=== PATIENT | female | born 1990 | race Caucasian/White ===

== ENCOUNTER 2020-05-05 17:25 | Emergency (ER) | payer MEDICAID ==
[~2020-05-05] VITALS: Ht 167.6 cm; Wt 72.5 kg
[2020-05-05] MEDS ORDERED: ONDANSETRON 2MG/ML, 2ML IVPush ONE (18:00)
[2020-05-05] MEDS ORDERED: SODIUM CHLORIDE 0.9% 1,000ML IVBOLUS ONE (18:00)
[2020-05-05] MEDS ORDERED: ONDANSETRON 2MG/ML, 2ML ONE (18:10)
--- NOTE | 2020-05-05 18:10 | NUR ---
THIS IS A 30 YO FEMALE COMING IN FOR N/V WORSENING OVER THE PAST WEEK. PATIENT IS WOMEN EST GESTATION 8 WEEKS. HAS OB APPT 05/08, WAS SEEN AT [facility]RG[facility] AND SENT HOME WITH ZOFRAN, NO RELIEF AT HOME, UNABLE TO TOLERATE FLUIDS OR FOOD. HAD SIMILAR EXPERIENCE WITH LAST . MONITORING IN PLACE, VSS, NOT VOMITING AT THIS TIME. ERP IN ROOM FOR EVAL
--- NOTE | 2020-05-05 18:23 | NUR ---
PIV PLACED, MEDICATED PER EMAR. UA COLLECTED AND SENT. BLOOD DRAWN BY TECH
[2020-05-05 18:26] LABS: BASOPHILS % (AUTO) 0 % (0-1); EOSINOPHILS % (AUTO) 0 % (1-7); LYMPHOCYTES % (AUTO) 18 % (22-44); MEAN CORPUSCULAR HEMOGLOBIN 32.7 pg (27.0-34.8); MEAN CORPUSCULAR HGB CONC 34.7 g/dL (32.4-35.8); MEAN PLATELET VOLUME 9.9 fL (7.4-10.4); MONOCYTES % (AUTO) 6 % (2-9); NEUTROPHILS % (AUTO) 75 % (42-75); PLATELET COUNT 159 x10^3/uL (130-400); RED BLOOD COUNT 4.69 x10^6/uL (3.82-5.3); RED CELL DISTRIBUTION WIDTH 12.6 % (9.6-15.2)
[2020-05-05 18:27] LABS: MD NO
[2020-05-05 18:27] LABS: MICROSCOPIC INDICATED
[2020-05-05 18:35] LABS: ALANINE AMINOTRANSFERASE 18 U/L (12-78); ALBUMIN 3.7 g/dL (3.4-5.0); ANION GAP 8 mmol/L (5-15); CALCIUM 8.8 mg/dL (8.5-10.1); CHLORIDE 109 mmol/L (98-107); CREATININE 0.65 mg/dL (0.55-1.02)
[2020-05-05 18:37] LABS: ALKALINE PHOSPHATASE 35 U/L (45-117); BILIRUBIN,TOTAL 0.8 mg/dL (0.2-1.0); TOTAL PROTEIN 6.8 g/dL (6.4-8.2)
[2020-05-05] MEDS ORDERED: METOCLOPRAMIDE 5 MG/ML, 2ML ONE (18:51)
[2020-05-05] MEDS ORDERED: CEFTRIAXONE PMX 1GM/50ML 50 ML ONE (18:51)
[2020-05-05] MEDS ORDERED: METOCLOPRAMIDE 5 MG/ML, 2ML IVPush ONE (19:00)
[2020-05-05] MEDS ORDERED: CEFTRIAXONE PMX 1GM/50ML 50 ML IV ONE (19:00)
--- NOTE | 2020-05-05 19:05 | NUR ---
PATIENT MEDICATED PER EMAR, TOLERATED WELL. IVF RUNNING
--- NOTE | 2020-05-05 19:48 | NUR ---
IVF/ABX DONE. PATIENT DENIES NAUSEA, STATES REGLAN HELPED. PATIENT UP FOR RECHECK
[2020-05-05 20:10] VITALS: BP 110/50
--- NOTE | 2020-05-05 20:17 | NUR ---
Patient given discharge instructions and they have confirmed that they understand the instructions. Patient ambulatory with steady gait.
== END 2020-05-05 20:32 | disposition home or self-care (01) ==
LOC: ED 19:10
DX: O23.11 Infections of bladder in pregnancy, first trimester (principal); R11.2 Nausea with vomiting, unspecified; E86.0 Dehydration; Z3A.08 8 weeks gestation of pregnancy
CPT/HCPCS: 36415; 80053; 81001; 85025; 87077; 87086; 87186; 96361; 96365; 96375; 99284; J0696; J2405; J2765; J7030

== ENCOUNTER 2020-05-25 13:17 | Emergency (ER) | payer MEDICAID ==
[~2020-05-25] VITALS: Ht 165.1 cm; Wt 72.1 kg
[2020-05-25 13:27] VITALS: BP 119/79
--- NOTE | 2020-05-25 13:53 | NUR ---
PATIENT WALKED BACK FROM TRIAGE WITH CHIEF C/O DIARRHEA, COUGH, RUNNY NOSE, SORE THROAT, BACK PAIN THAT STARTED LAST NIGHT. PATIENT DENIES ANY N/V, NO FEVER. NO SIGNS OF ACUTE DISTRESS. LAYING IN GURNEY, CALL LIGHT WITHIN REACH.
--- NOTE | 2020-05-25 14:50 | NUR ---
Patient given discharge instructions and they have confirmed that they understand the instructions, questions answered. Patient ambulatory with steady gait from ED.
== END 2020-05-25 14:51 | disposition home or self-care (01) ==
LOC: ED 13:30
DX: B34.9 Viral infection, unspecified (principal); Z20.828 Contact with and (suspected) exposure to other viral communicable diseases
CPT/HCPCS: 36415; 87635; 99283